=== PATIENT | male | born 2000 | race Caucasian/White ===

== ENCOUNTER 2024-06-07 10:10 | Outpatient (CLI) | payer OTHER, SELFPAY ==
--- NOTE | 2024-06-07 11:00 | CRLHL7_ITS ---
For Patients: As a result of the Cures Act, medical imaging exams and procedure reports are released immediately into your electronic medical record. You may view this report before your referring provider. If you have questions, please contact your health care provider. Indication: SINUSITIS, CHRONIC SINUS INFECTION ON RIGHT SIDE Technique: Performed without IV contrast Comparison: None available Findings: Frontal sinuses: Complete opacification of the right frontal sinus. Near-complete opacification of the left frontal sinus. Ethmoid sinuses: Near-complete opacification of the right ethmoid sinus. Relatively clear left ethmoid sinus. Maxillary sinuses: Complete opacification of the right maxillary sinus with obstruction of the sinus drainage pathway. Mild mucosal thickening and small mucous retention cyst within the left maxillary sinus with partial obstruction of the sinus drainage pathway. Sphenoid sinuses: Near-complete opacification of the right sphenoid sinus with obstruction of the sphenoethmoidal recess. Mild mucosal thickening within the left sphenoid sinus with at least partial obstruction of the sphenoethmoidal recess. Nasal Cavity: Leftward curvature of the nasal septum. Soft tissue density within the right nasal cavity with obscuration of the right middle turbinate. Incidental cavum septum pellucidum. Impression: 1. Severe bilateral frontal, right ethmoid, right maxillary and right sphenoid sinus disease. 2. Leftward curvature of the nasal septum. Soft tissue density within the right nasal cavity with obscuration of the right middle turbinate, likely mucus although can not exclude polyp. Please note that all CT scans at this facility use dose modulation, iterative reconstruction, and/or weight-based dosing when appropriate to reduce radiation dose to as low as reasonably achievable. Dictated by Reid Barrientos MD @ 06/07/2024 12:25:32 PM (Electronically Signed)
== END 2024-06-07 10:11 | disposition home or self-care (01) ==
LOC: CT 10:12
PROVIDERS: Visit Provider Otolaryngology
DX: J32.9 Chronic sinusitis, unspecified (principal); J32.0 Chronic maxillary sinusitis; J34.2 Deviated nasal septum
CPT/HCPCS: 70486

== ENCOUNTER 2024-06-23 11:20 | Day surgery (SDC) | payer OTHER, SELFPAY ==
[2024-06-23] VITALS (18 sets, daily range): BP systolic 106–145; BP diastolic 56–103; PULSE 62–102; RESP 14–16; TEMP 36.5–37.2; O2SAT 90–100; BMI 25.4
[2024-06-23] MEDS: OXYMETAZOLINE 0.05% NASAL SPRAY 2 SPRAY NOSTRIL-B (11:21)
[2024-06-23] MEDS: 0.9 % SODIUM CHLORIDE 500 ML 500 ML 35 ML IV (12:15)
[2024-06-23] MEDS: SODIUM CHLORIDE 0.9 % (FLUSH) 10 ML SYRINGE IVF (12:15)
[2024-06-23] MEDS: COCAINE HCL 4 % 4 ML SOLUTION NOSTRIL-R (13:40)
[2024-06-23] MEDS: MUPIROCIN 1 GM PACKET 1 APPLIC TOPICAL (13:46)
[2024-06-23] MEDS: BUPIVACAINE 0.5%/EPINEPHRINE 0.9 MG (30.9 ML) INJECTION (13:50)
--- NOTE | 2024-06-23 14:01 | W.PM.ENTPROC ---
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 Culture was obtained from the right maxillary sinus contents Under general endotracheal anesthesia patient was prepped and draped in the usual fashion. The image guided guidance system was registered to 1.6 mm accuracy. The patient's nose was decongested on the right side with cocaine pledgets and in the anterior head of the inferior turbinate and uncinate were injected. Was apparent that the medial wall of maxillary sinus superiorly was bulging into the nasal cavity. I was able to remove the inferior quarter the uncinate process with a micro backbiter and enter the sinus which immediately resulted in a large amount of purulent drainage. This was cultured. A large greater than 1 cm antrostomy was created. A large amount of polypoid inflamed mucosa was removed from the maxillary sinus. The ethmoid bulla was taken down and dissection carried out in an anterior to posterior direction to the face of the sphenoid removing a moderate to large amount of polypoid tissue there was no apparent purulent drainage in the ethmoid sinus. The frontal balloon was then placed in the frontal recess and I was able to dilate at the opening into the right frontal sinus. Two dilations were performed. The entire case was fairly bloody id presumably due to inflammation. I placed a Merocel pack cut in half long lengthwise and coated in Bactroban in the middle meatal region and inferiorly I placed a PA's the pack. This seemed to adequately control bleeding. The patient procedure well was taken recovery in satisfactory condition. Blood loss during procedure was approximately 50 mL. Surgeon: Gerry Graves MD
--- NOTE | 2024-06-23 14:24 | W.ANESCHARGE ---
Anesthesia Charges Start Date/Time Anesthesia Start Date: 06/23/24 Anesthesia Start Time: 13:08 Stop Date/Time Anesthesia Stop Date: 06/23/24 Anesthesia Stop Time: 14:14
[2024-06-23] MEDS: MEPERIDINE 25 MG/ML INJ 12.5 MG IVP (14:25)
--- NOTE | 2024-06-23 14:56 | W.ANESCHARGE ---
Anesthesia Charges Start Date/Time Anesthesia Start Date: 06/23/24 Anesthesia Start Time: 13:08 Stop Date/Time Anesthesia Stop Date: 06/23/24 Anesthesia Stop Time: 14:14
--- NOTE | 2024-06-23 15:39 | SUR.PHASEII ---
1500: Patient de-sating into 85%, encouraged patient to take deep breaths and cough. Patient coughed up 3 large blood clots into emesis bag. Small amount of blood with each coughing and deep breathing with low sats. LLL auscultated with crackles at bases. Anesthesia notified. Continue to monitor patient for further de-sats. Notify Dr. Graves if no improvement.
--- NOTE | 2024-06-23 15:45 | SUR.PHASEII ---
Instructed patient on use of incentive spirometer, encouraged use hourly.
[2024-06-23] MEDS: ACETAMINOPHEN 325 MG TABLET PO (17:10)
[2024-06-23] MEDS: IBUPROFEN 200 MG TABLET PO (17:10)
--- NOTE | 2024-06-23 17:37 | SUR.PHASEII ---
1700: Called Brigitte HOLLAND and Dr. Graves to update on patients status. Sats above 90% then entire hour with one episode at 88% at the hour meme. Ok to discharge patient to home. Patient to use incentive spirometer and call 911 or emergency room for any difficulty breathing.
== END 2024-06-23 17:30 | disposition home or self-care (01) ==
PROVIDERS: Visit Provider Otolaryngology
PROC: (CPT 31231; principal; 2024-06-23 12:45)
DX: J32.0 Chronic maxillary sinusitis (principal); J32.2 Chronic ethmoidal sinusitis; J32.1 Chronic frontal sinusitis; J33.8 Other polyp of sinus
CPT/HCPCS: 31267; 31255; 31296; 00160; 87070; 87075; 87186; 87205; 88305; A9270; J0330; J2175; J2704; J3010; J7030